=== PATIENT | male | born 1965 | race Hispanic/Latino ===

== ENCOUNTER 2017-06-06 03:37 | Emergency (ER) | payer MEDICAID, OTHER ==
[~2017-06-06 03:37] MED LIST: ATOR40TA69 PO; DOXY100T2 PO; METF500T3 PO
[2017-06-06 04:04] LABS: APPEARANCE,URINE Turbid (CLEAR); BILIRUBIN,URINE Negative (NEGATIVE); COLOR,URINE Red (YELLOW); GLUCOSE, URINE (UA) Negative (NEGATIVE); KETONES,URINE Negative (NEGATIVE); LEUKOCYTE ESTERASE ,URINE Large (NEGATIVE); NITRATE,URINE Positive (NEGATIVE); OCCULT BLOOD,URINE Large (NEGATIVE); PROTEIN,URINE POS 2+ (NEGATIVE); UROBILINOGEN,URINE 0.2 mg/dL (0.2-1.0)
[2017-06-06] MEDS ORDERED: CEFTRIAXONE SODIUM 1 GM ONE (04:07)
[2017-06-06] MEDS ORDERED: AZITHROMYCIN 250 MG TABLET PO ONE (04:14)
[2017-06-06] MEDS ORDERED: KETOROLAC TROMETHAMINE 30MG/ML ONE (04:15)
[2017-06-06 04:21] LABS: BACTERIA,URINE Many /HPF (None Seen); RBC,URINE >100 /HPF (0-1); WBC,URINE 51-100 /HPF (0-1)
== END 2017-06-06 04:48 | disposition home or self-care (01) ==
LOC: EDH 03:37
DX: N39.0 Urinary tract infection, site not specified (principal); I10 Essential (primary) hypertension
CPT/HCPCS: 81001; 96372 ×2; 99284; J0696; J1885